=== PATIENT | male | born 1960 | race American Indian/Alaskan Native ===

== ENCOUNTER 2019-03-10 02:10 | Emergency (ER) | payer OTHER ==
[2019-03-10] MEDS ORDERED: IBUPROFEN ONE (02:49)
[2019-03-10] MEDS ORDERED: NORCO 5/325 ONE (02:49)
[2019-03-10] MEDS ORDERED: ZOFRAN ODT ONE ×2 (02:49→05:27)
--- NOTE | 2019-03-10 02:56 | XRay Report ---
Right ankle-3 views INDICATION: work injury. Acute generalized right ankle pain COMPARISON: None. IMPRESSION: No acute osseous or soft tissue abnormality. No significant DJD. Signer Name: Cisco Pascual MD Signed: 03/10/2019 2:52 AM Workstation Name: [id number]
[2019-03-10] MEDS ORDERED: IBUPROFEN PO ONE (03:10)
[2019-03-10] MEDS ORDERED: NORCO 5/325 PO ONE (03:10)
[2019-03-10] MEDS ORDERED: ZOFRAN ODT PO ONE ×2 (03:10→06:25)
--- NOTE | 2019-03-10 04:46 | Emergency Department Report ---
ED Lower Extremity HPI - General Chief Complaint: Extremity Injury, Lower Stated Complaint: ANKLE INJURY Time Seen by Provider: 03/10/19 03:15 Source: patient Mode of arrival: Ambulatory Limitations: No Limitations - History of Present Illness Initial Comments: Patient is a 58-year-old [place] male with no past medical history presents to the ED complaining of acute onset persistent severe right ankle pain and swelling after a heavy pallet at work and dropped onto his right ankle 8 hours ago. Patient states the pain has worsened the last was sudden as he has been unable to bear weight on the right ankle foot. Patient denies nausea, vomiting, fall, dizziness, numbness and tingling or weakness of right ankle, shortness of breath or back pain. Patient states that walking or bearing weight on the right leg makes the pain worse. MD Complaint: ankle injury (right ankle) -: Sudden, hour(s) (8) Injury: Ankle: Right (severe pain and swelling) Type of Injury: blunt Place: work Severity: severe Severity scale (0 -10): 8 Improves With: nothing Worsens With: weight bearing, movement, palpation Context: direct blow Associated Symptoms: snap/pop sensation, swelling, able to partially bear weight. denies: numbness, tingling, unable to bear weight, ambulatory - Related Data Previous Rx's Medication Instructions Recorded Last Taken Type Baclofen 20 mg PO Q8H PRN #21 tablet 03/10/19 Unknown Rx Ibuprofen [Motrin] 800 mg PO Q8HR PRN #24 tablet 03/10/19 Unknown Rx traMADol [Ultram] 50 mg PO Q6HR PRN #15 tablet 03/10/19 Unknown Rx Allergies Allergy/AdvReac Type Severity Reaction Status Date / Time No Known Allergies Allergy Unverified 03/10/19 02:25 ED Review of Systems ROS: Stated complaint: ANKLE INJURY Other details as noted in HPI Constitutional: denies: chills, fever Eyes: denies: eye pain, eye discharge, vision change ENT: denies: ear pain, throat pain Respiratory: denies: cough, shortness of breath, wheezing Cardiovascular: denies: chest pain, palpitations Endocrine: no symptoms reported Gastrointestinal: denies: abdominal pain, nausea, diarrhea Genitourinary: denies: urgency, dysuria Musculoskeletal: joint swelling (right ankle ), arthralgia (right ankle pain and swelling), myalgia. denies: back pain Skin: denies: rash, lesions Neurological: denies: headache, weakness, paresthesias Psychiatric: denies: anxiety, depression Hematological/Lymphatic: denies: easy bleeding, easy bruising ED Past Medical Hx - Social History Smoking Status: Current Every Day Smoker - Medications Home Medications: Home Medications Medication Instructions Recorded Confirmed Last Taken Type Baclofen 20 mg PO Q8H PRN #21 tablet 03/10/19 Unknown Rx Ibuprofen [Motrin] 800 mg PO Q8HR PRN #24 tablet 03/10/19 Unknown Rx traMADol [Ultram] 50 mg PO Q6HR PRN #15 tablet 03/10/19 Unknown Rx ED Physical Exam - General Limitations: No Limitations General appearance: alert, in no apparent distress - Head Head exam: Present: atraumatic, normocephalic, normal inspection - Eye Eye exam: Present: normal appearance, PERRL, EOMI Pupils: Present: normal accommodation - ENT ENT exam: Present: normal exam, normal orophraynx, mucous membranes moist, TM's normal bilaterally, normal external ear exam - Neck Neck exam: Present: normal inspection, full ROM - Respiratory Respiratory exam: Present: normal lung sounds bilaterally. Absent: respiratory distress, wheezes, rales, rhonchi, chest wall tenderness, decreased breath sounds, prolonged expiratory - Cardiovascular Cardiovascular Exam: Present: regular rate, normal rhythm, normal heart sounds. Absent: systolic murmur, diastolic murmur, rubs, gallop - GI/Abdominal GI/Abdominal exam: Present: soft, normal bowel sounds. Absent: distended, tenderness, guarding, rigid, hypoactive bowel sounds, organomegaly, bruit - Rectal Rectal exam: Present: deferred - Extremities Exam Extremities exam: Present: normal inspection, tenderness (right ankle ), normal capillary refill, joint swelling (right ankle). Absent: full ROM (limited due to pain) - Back Exam Back exam: Present: normal inspection, full ROM. Absent: tenderness, CVA tenderness (L), muscle spasm, paraspinal tenderness, vertebral tenderness - Neurological Exam Neurological exam: Present: alert, oriented X3, CN II-XII intact, normal gait, motor sensory deficit, reflexes normal - Psychiatric Psychiatric exam: Present: normal affect, normal mood - Skin Skin exam: Present: warm, dry, intact, normal color. Absent: rash ED Course - Reevaluation(s) Reevaluation #1: 03/10/19 04:46 This is a 58-year-old male with no past medical history presented to the ED with right ankle pain and swelling after an injury at work. In the ED, patient is alert and oriented 3 and is not in distress but appears to be in pain. Patient was treated for pain in the ED and the right ankle x-ray shows no acute fractures or subluxations. Patient had his right ankle splinted with Karthik wrap in the ED and was also given crutches to aid in his ambulation. Patient was discharged home on pain medications and given a referral to the orthopedic surgeon construction safety consultant Dr. Cox for further evaluation. Patient was advised to contact the mental diffuse if his symptoms get worse or alternatively return to the ED immediately. 03/10/19 04:47 ED Lower Extremity MDM - Radiology Data Radiology results: report reviewed, image reviewed Right ankle x-ray shows no acute fractures or subluxations or soft tissue moderate. There is no significant degenerative joint disease. - Medical Decision Making This is a 58-year-old male with no past medical history presented to the ED with right ankle pain and swelling after an injury at work. In the ED, patient is alert and oriented 3 and is not in distress but appears to be in pain. Patient was treated for pain in the ED and the right ankle x-ray shows no acute fractures or subluxations. Patient had his right ankle splinted with Karthik wrap in the ED and was also given crutches to aid in his ambulation. Patient was discharged home on pain medications and given a referral to the orthopedic surgeon construction safety consultant Dr. Cox for further evaluation. Patient was advised to contact the mental diffuse if his symptoms get worse or alternatively return to the ED immediately. - Differential Diagnosis severe right ankle sprain; right ankle contusion, muscle strain Critical care attestation.: If time is entered above; I have spent that time in minutes in the direct care of this critically ill patient, excluding procedure time. ED Disposition Clinical Impression: Contusion of right lower leg, initial encounter Severe sprain of right ankle Qualifiers: Encounter type: initial encounter Qualified Code(s): S93.401A - Sprain of unspecified ligament of right ankle, initial encounter Muscle strain of right ankle Qualifiers: Encounter type: initial encounter Qualified Code(s): S96.911A - Strain of unspecified muscle and tendon at ankle and foot level, right foot, initial encounter Disposition: TO HOME OR SELFCARE Is pt being admited?: No Does the pt Need Aspirin: No Condition: Stable Instructions: Muscle Strain (ED), Ankle Sprain (ED), Musculoskeletal Pain (ED), Contusion in Adults (ED) Additional Instructions: Take medications with food, drink plenty of fluids and follow up with your primary care physician in 7-10 days for reevaluation. Return to the ED immediately if symptoms get worse. Consider following up with the orthopedic surgeon Dr. Cox if symptoms get worse, or return to the ED immediately for further evaluation if your symptoms get worse. Prescriptions: Baclofen 20 mg PO Q8H PRN #21 tablet PRN Reason: Spasms Ibuprofen [Motrin] 800 mg PO Q8HR PRN #24 tablet PRN Reason: Pain , Severe (7-10) traMADol [Ultram] 50 mg PO Q6HR PRN #15 tablet PRN Reason: Pain Referrals: [facility] [Outside] - 3-5 Days VERO COX MD [Staff Physician] - 3-5 Days Time of Disposition: 04:51 Print Language: SPANISH
[2019-03-10] MEDS ORDERED: PERCOCET 5/325 ONE (05:26)
[2019-03-10 05:48] VITALS: BP 103/67
[2019-03-10] MEDS ORDERED: PERCOCET 5/325 PO ONE (06:25)
== END 2019-03-10 05:35 | disposition home or self-care (01) ==
LOC: ED 02:10
DX: S93.401A Sprain of unspecified ligament of right ankle, initial encounter (principal); S96.911A Strain of unspecified muscle and tendon at ankle and foot level, right foot, initial encounter; F17.200 Nicotine dependence, unspecified, uncomplicated; Z79.899 Other long term (current) drug therapy; W20.8XXA Other cause of strike by thrown, projected or falling object, initial encounter; Y93.89 Activity, other specified; Y92.89 Other specified places as the place of occurrence of the external cause; Y99.8 Other external cause status
CPT/HCPCS: 99284; Q0162

== ENCOUNTER 2019-06-09 20:36 | Emergency (ER) | payer BC, OTHER ==
[2019-06-09 20:52] VITALS: BP 152/90
--- NOTE | 2019-06-09 20:56 | Emergency Department Report ---
ED Back Pain/Injury HPI - General Chief Complaint: Back Pain/Injury Stated Complaint: BACK PAIN Time Seen by Provider: 06/09/19 20:50 Source: patient Limitations: No Limitations - History of Present Illness Initial Comments: This is a 58-year-old male nontoxic, well nourished in appearance, no acute signs of distress presents to the ED with c/o of acute on chronic lower back pa in. Patient stated that the past 1 month he was moving and developed this pain. Patient denies any trauma. Denies any bladder or bowel instability. Patient denies any urinary symptoms. Denies any fever, chills, nausea, vomiting, headache, stiff neck, chest pain or shortness of breath. Patient denies any numbness or tingling. Denies any allergies. MD Complaint: back pain -: month(s) (1) Similar Symptoms Previously: Yes Place: home Radiation: none Severity: mild Severity scale (0 -10): 8 Quality: aching Consistency: intermittent Improves With: immobilization, sitting upright Worsens With: movement, walking Context: while lifting, turning/twisting Associated Symptoms: denies other symptoms. denies: confusion, weakness, chest pain, numbness, difficulty walking, cough, difficulty urinating, diaphoresis, incontinence, fever/chills, constipation, headaches, abdominal pain, loss of appetite, malaise, nausea/vomiting, rash, seizure, shortness of breath, syncope - Related Data Previous Rx's Medication Instructions Recorded Last Taken Type Baclofen 20 mg PO Q8H PRN #21 tablet 03/10/19 Unknown Rx Ibuprofen [Motrin] 800 mg PO Q8HR PRN #24 tablet 03/10/19 Unknown Rx traMADoL [Ultram] 50 mg PO Q6HR PRN #15 tablet 03/10/19 Unknown Rx Cyclobenzaprine [Flexeril] 10 mg PO QHS PRN #10 tablet 06/09/19 Unknown Rx Naproxen 500 mg PO Q12H PRN #20 tablet 06/09/19 Unknown Rx Allergies Allergy/AdvReac Type Severity Reaction Status Date / Time No Known Allergies Allergy Unverified 03/10/19 02:25 ED Review of Systems ROS: Stated complaint: BACK PAIN Other details as noted in HPI Constitutional: denies: chills, fever Eyes: denies: eye pain, eye discharge, vision change ENT: denies: ear pain, throat pain Respiratory: denies: cough, shortness of breath, wheezing Cardiovascular: denies: chest pain, palpitations Endocrine: no symptoms reported Gastrointestinal: denies: abdominal pain, nausea, diarrhea Genitourinary: denies: urgency, dysuria Musculoskeletal: back pain. denies: joint swelling, arthralgia Skin: denies: rash, lesions Neurological: denies: headache, weakness, paresthesias Psychiatric: denies: anxiety, depression Hematological/Lymphatic: denies: easy bleeding, easy bruising ED Past Medical Hx - Social History Smoking Status: Current Every Day Smoker - Medications Home Medications: Home Medications Medication Instructions Recorded Confirmed Last Taken Type Baclofen 20 mg PO Q8H PRN #21 tablet 03/10/19 Unknown Rx Ibuprofen [Motrin] 800 mg PO Q8HR PRN #24 tablet 03/10/19 Unknown Rx traMADoL [Ultram] 50 mg PO Q6HR PRN #15 tablet 03/10/19 Unknown Rx Cyclobenzaprine [Flexeril] 10 mg PO QHS PRN #10 tablet 06/09/19 Unknown Rx Naproxen 500 mg PO Q12H PRN #20 tablet 06/09/19 Unknown Rx ED Physical Exam - General Limitations: No Limitations General appearance: alert, in no apparent distress - Head Head exam: Present: atraumatic, normocephalic - Neck Neck exam: Present: normal inspection, full ROM. Absent: tenderness, meningismus - Extremities Exam Extremities exam: Present: normal inspection, full ROM, normal capillary refill. Absent: tenderness - Back Exam Back exam: Present: normal inspection, full ROM, paraspinal tenderness (lumbar paraspinal). Absent: tenderness, CVA tenderness (R), CVA tenderness (L), muscle spasm, vertebral tenderness, rash noted - Expanded Back Exam Expanded Back exam: Absent: saddle anesthesia Back exam: Negative Straight Leg Raising: Left, Right - Neurological Exam Neurological exam: Present: alert, oriented X3, normal gait - Psychiatric Psychiatric exam: Present: normal affect, normal mood - Skin Skin exam: Present: warm, dry, intact, normal color. Absent: rash ED Course - Reevaluation(s) Reevaluation #1: 06/09/19 20:53 Patient is speaking in full sentences with no signs of distress noted. ED Medical Decision Making - Medical Decision Making This is a 58-year-old male that presents with low back strain. Patient is stable was examined by me. There is no spinal tenderness. There is no cauda equina syndrome during examination. No bladder or bowel instability. Patient is discharged with muscle relaxant and NSAID. Patient was instructed not to operate any machinery while taking muscle relaxant as they cause her drowsiness. Patient was referred to Follow-up with a primary care doctor in 3-5 days or if symptoms worsen and continue return to emergency room as soon as possible. At time of discharge, the patient does not seem toxic or ill in appearance. No acute signs of distress noted. Patient agrees to discharge treatment plan of care. No further questions noted by the patient. Critical care attestation.: If time is entered above; I have spent that time in minutes in the direct care of this critically ill patient, excluding procedure time. ED Disposition Clinical Impression: Low back strain Disposition: DC-01 TO HOME OR SELFCARE Is pt being admited?: No Does the pt Need Aspirin: No Condition: Stable Instructions: Low Back Strain (ED), Cyclobenzaprine (By mouth) Additional Instructions: Follow-up with a primary care doctor in 3-5 days or if symptoms worsen and continue return to emergency room as soon as possible. Prescriptions: Cyclobenzaprine [Flexeril] 10 mg PO QHS PRN #10 tablet PRN Reason: Muscle Spasm Naproxen 500 mg PO Q12H PRN #20 tablet PRN Reason: Pain , Severe (7-10) Referrals: PRIMARY [facility] [Referring] - 3-5 Days MARIA DOLORES SHINE MD [Staff Physician] - 3-5 Days [facility] [Outside] - 3-5 Days [facility] [Outside] - 3-5 Days Forms: Work/School Release Form(ED)
== END 2019-06-09 21:06 | disposition home or self-care (01) ==
LOC: ED 20:36
DX: S39.012A Strain of muscle, fascia and tendon of lower back, initial encounter (principal); F17.200 Nicotine dependence, unspecified, uncomplicated; X58.XXXA Exposure to other specified factors, initial encounter; Y93.89 Activity, other specified; Y92.89 Other specified places as the place of occurrence of the external cause; Y99.8 Other external cause status
CPT/HCPCS: 99282